=== PATIENT | male | born 1965 ===

== ENCOUNTER 2017-07-26 02:41 | Inpatient (IN) | payer MEDICAID, OTHER ==
[2017-07-26 02:41] VITALS: BMI 30.7
[2017-07-26] MEDS ORDERED: Morphine 4 MG/ML VIAL ONE (02:52)
[2017-07-26] MEDS ORDERED: Iodixanol 320 MG/ML 200 ML BOTTLE IV ONE (02:58)
[2017-07-26] MEDS ORDERED: Nitroglycerin 50mg in D5W 50 MG/250 ML BOTTLE IV ONE (02:58)
[2017-07-26] MEDS ORDERED: Midazolam 2 MG/2 ML VIAL ONE (03:01)
--- NOTE | 2017-07-26 03:01 | C.PDOC ---
History Of Present Illness Patient presents as a code heart transfer, he was seen in the ER by Dr. Leger and sent up to the center medical and lab director immediately. Chief Complaint (Nursing): Chest Pain Past Medical History Reviewed: Historical Data, Nursing Documentation, Vital Signs Vital Signs: Last Vital Signs Temp 97.6 F 07/26/17 03:54 Pulse 74 07/26/17 03:54 Resp 16 07/26/17 03:54 BP 128/72 07/26/17 03:54 Pulse Ox - Medical History PMH: Arthritis, Hypothyroidism Family History: States: Unknown Family Hx - Social History Hx Alcohol Use: No Hx Substance Use: No Disposition Discussed With : Gonzales Leger Doctor Will See Patient In The: Hospital Counseled Patient/Family Regarding: Diagnosis - Disposition Disposition: HOSPITALIZED Disposition Time: 03:40 Condition: STABLE - POA Present On Arrival: None - Clinical Impression Clinical Impression: Acute MA - Scribe Statement The provider has reviewed the documentation as recorded by the Scribe Randall Topete All medical record entries made by the Scribanthony were at my direction and personally dictated by me. I have reviewed the chart and agree that the record accurately reflects my personal performance of the history, physical exam, medical decision making, and the department course for this patient. I have also personally directed, reviewed, and agree with the discharge instructions and disposition.
[2017-07-26] MEDS ORDERED: Sodium Chloride 0.9% 1,000 ML IV SCH (04:30)
--- NOTE | 2017-07-26 05:23 | CP.PCM.HP ---
Addendum entered and electronically signed by Rogerio Rodriguez DO 07/26/17 07: 07: 1. Pt also given MRSA screen Original Note: <Rogerio Rodrigeuz - Last Filed: 07/26/17 06:54> History of Present Illness - History of Present Illness History of Present Illness: This is a 52 yo male with past medical hx of hypothyroidism who presents for evaluation of chest pain. He initially presented to [facility] with chief complaint of chest pain. A code heart was called and pt was transferred to [facility]. Code heart team was assembled and Dr. Gonzales Leger performed cardiac cath. Pt is s/p coronary angioplasty with stent. 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 The chest pain was rated 9/10, radiated to the left arm, was described as a "burden" on his chest. The pain came and went but became progressively longer in duration. It was initially associated with shivering and a feeling that something was wrong, then progressed with the chest pain to SOB, dizziness, and a pressure in his head. Patient reports that this is the first time that he has experienced this. Patient denies fevers, chills, abdominal pain, nausea, vomiting, and diarrhea. When patient arrived at his home around 2:00am, he found his son and told him that he needed to go to a hospital. The patient then laid on the ground , states he did not fall. Patient's son then brought him to [facility], code heart was called, and he was transferred to [facility] ED. Patient was brought to labor mediator upon arrival. Access was obtained through the right femoral artery. 1 stent was placed in the first diagonal branch, all other vessels were found to have only minor disease. PMD: Jennifer Ibarra? ( last saw a few months ago, but saw another doctor covering for Dr. Ibarra very recently) Specialists: none Insurance: [employer] [facility] community plan medicaid Code status: full code PMH: hypothyroidism PSH: hernia repair 15 yrs ago, operation on hemorrhoids Allergies: NKDA Medications: levothyroxine daily Social hx: denies smoking, drinking, drug use. 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 Normally able to perform all ADLs without assistance. Present on Admission - Present on Admission Any Indicators Present on Admission: No History of DVT/PE: No History of Uncontrolled Diabetes: No Urinary Catheter: No Decubitus Ulcer Present: No Review of Systems - Constitutional Constitutional: absent: Chills, Fever - EENT Eyes: absent: Blurred Vision, Change in Vision Nose/Mouth/Throat: absent: Sore Throat, Neck Pain - Cardiovascular Cardiovascular: Chest Pain, Chest Pain at Rest, Diaphoresis, Dyspnea, Pain Radiating to Arm/Neck/Jaw - Respiratory Respiratory: Dyspnea. absent: Cough, Hemoptysis - Gastrointestinal Gastrointestinal: absent: Abdominal Pain, Nausea, Vomiting - Genitourinary Genitourinary: absent: Change in Urinary Stream, Difficulty Urinating - Musculoskeletal Musculoskeletal: absent: Arthralgias, Back Pain - Integumentary Integumentary: absent: Bleeding Lesions, Changing Lesions - Neurological Neurological: absent: Focal Weakness, Syncope - Psychiatric Psychiatric: absent: Hallucinations, Visual Hallucinations - Hematologic/Lymphatic Hematologic: absent: Easy Bleeding, Easy Bruising Past Patient History - Infectious Disease Hx of Infectious Diseases: None - Tetanus Immunizations Tetanus Immunization: Unknown - Past Medical History & Family History Past Medical History?: Yes Past Family History: Reviewed and not pertinent - Past Social History Smoking Status: Never Smoked Chewing Tobacco Use: No Cigar Use: No Alcohol: None Drugs: Denies Home Situation {Lives}: With Family Domestic Violence: Negative - CARDIAC Hx Cardiac Disorders: No - PULMONARY Hx Respiratory Disorders: No - NEUROLOGICAL Hx Neurological Disorder: No - HEENT Hx HEENT Problems: No - RENAL Hx Chronic Kidney Disease: No - ENDOCRINE/METABOLIC Hx Hypothyroidism: Yes - HEMATOLOGICAL/ONCOLOGICAL Hx Blood Disorders: No - INTEGUMENTARY Hx Dermatological Problems: No - MUSCULOSKELETAL/RHEUMATOLOGICAL Hx Falls: No - GASTROINTESTINAL Hx Gastrointestinal Disorders: No Hx Hemorrhoids: Yes - GENITOURINARY/GYNECOLOGICAL Hx Genitourinary Disorders: No - PSYCHIATRIC Hx Substance Use: No - SURGICAL HISTORY Hx Surgeries: Yes Hx Herniorrhaphy: Yes Other/Comment: HEMORRHOIDECTOMY - ANESTHESIA Hx Anesthesia: Yes Hx Anesthesia Reactions: No Hx Malignant Hyperthermia: No Has any member of the family had a problem w/ anesthesia?: No Meds Allergies/Adverse Reactions: Allergies Allergy/AdvReac Type Severity Reaction Status Date / Time No Known Allergies Allergy Verified 02/25/15 08:23 Physical Exam - Constitutional Appears: Non-toxic, No Acute Distress - Head Exam Head Exam: ATRAUMATIC, NORMAL INSPECTION, NORMOCEPHALIC - Eye Exam Eye Exam: EOMI - ENT Exam ENT Exam: Mucous Membranes Moist - Neck Exam Neck exam: Positive for: Full Rom, Normal Inspection - Respiratory Exam Respiratory Exam: Clear to Auscultation Bilateral, NORMAL BREATHING PATTERN. absent: Respiratory Distress - Cardiovascular Exam Cardiovascular Exam: REGULAR RHYTHM, +S1, +S2 - GI/Abdominal Exam GI & Abdominal Exam: Normal Bowel Sounds, Soft. absent: Tenderness - Exam Exam: NORMAL INSPECTION Additional comments: dressing clean and dry without signs of hematoma - Extremities Exam Extremities exam: Positive for: full ROM, normal inspection - Neurological Exam Neurological exam: Alert, CN II-XII Intact, Oriented x3 - Psychiatric Exam Psychiatric exam: Normal Affect, Normal Mood - Skin Skin Exam: Dry, Intact, Normal Color, Warm Results - Vital Signs Recent Vital Signs: Last Vital Signs Temp 97.6 F 07/26/17 03:54 Pulse 74 07/26/17 03:54 Resp 16 07/26/17 03:54 BP 128/72 07/26/17 03:54 Pulse Ox - Labs Result Diagrams: 07/26/17 06:28 Labs: Laboratory Results - last 24 hr 07/26/17 02:48 POC Glucose (mg/dL) 112 H Assessment & Plan - Assessment and Plan (Free Text) Assessment: This is a 52 yo male with past medical hx of hypothyroidism presenting with chest pain and S/P code heart and coronary angioplasty with stent 1. Code heart -s/p angioplasty with stent -Dr. Leger performed the procedure -NS 50 cc/hr -monitor groin site for any hematomas -management per ICU team including Dr. Ramos. -pt is hemodynamically stable -morning troponin ordered -morning ekg ordered -asa 81 mg po daily 2. hx of hypothyroidism -check TSH and free T4 -confirm dose -continue home synthroid -levothyroxine 175 mcg daily 3. GI/DVT ppx protonix 40 mg iv daily defer to ICU for DVT ppx Heart healthy diet Full code <Thai De La Torre - Last Filed: 07/26/17 19:30> Results - Vital Signs Recent Vital Signs: Last Vital Signs Temp 97.7 F 07/26/17 12:00 Pulse 69 07/26/17 12:16 Resp 17 07/26/17 12:16 BP 96/58 L 07/26/17 12:16 Pulse Ox 98 07/26/17 12:16 - Labs Result Diagrams: 07/26/17 06:28 07/26/17 06:28 Labs: Laboratory Results - last 24 hr 07/26/17 07/26/17 07/26/17 02:48 06:28 06:28 WBC 10.0 RBC 5.27 Hgb 14.5 Hct 41.5 MCV 78.7 L MCH 27.6 MCHC 35.0 RDW 13.9 Plt Count 288 MPV 8.3 Neut % (Auto) 66.5 Lymph % (Auto) 26.4 [place] % (Auto) 6.2 Eos % (Auto) 0.6 Baso % (Auto) 0.3 Neut # (Auto) 6.6 Lymph # (Auto) 2.6 [place] # (Auto) 0.6 Eos # (Auto) 0.1 Baso # (Auto) 0.0 Sodium 139 Potassium 4.0 Chloride 104 Carbon Dioxide 23 Anion Gap 16 BUN 13 Creatinine 1.0 Est GFR ( Amer) > 60 Est GFR (Non-Af Amer) > 60 POC Glucose (mg/dL) 112 H Random Glucose 94 Hemoglobin A1c Calcium 8.6 Phosphorus 3.3 Magnesium 2.0 Total Bilirubin 0.6 AST 26 ALT 21 D Alkaline Phosphatase 52 Total Creatine Kinase 172 H CK-MB (Mass) 7.24 H Troponin I 1.8600 H* Total Protein 7.0 Albumin 3.8 Globulin 3.2 Albumin/Globulin Ratio 1.2 Triglycerides Cholesterol LDL Cholesterol Direct HDL Cholesterol 07/26/17 07/26/17 08:32 08:32 WBC RBC Hgb Hct MCV MCH MCHC RDW Plt Count MPV Neut % (Auto) Lymph % (Auto) [place] % (Auto) Eos % (Auto) Baso % (Auto) Neut # (Auto) Lymph # (Auto) [place] # (Auto) Eos # (Auto) Baso # (Auto) Sodium Potassium Chloride Carbon Dioxide Anion Gap BUN Creatinine Est GFR ( Amer) Est GFR (Non-Af Amer) POC Glucose (mg/dL) Random Glucose Hemoglobin A1c 6.0 Calcium Phosphorus Magnesium Total Bilirubin AST ALT Alkaline Phosphatase Total Creatine Kinase CK-MB (Mass) Troponin I Total Protein Albumin Globulin Albumin/Globulin Ratio Triglycerides 301 H Cholesterol 214 H LDL Cholesterol Direct 131 H HDL Cholesterol 25 L Assessment & Plan - Date & Time Date: 07/26/17 (I have seen and examined the patient. I agree with the findings and plan of care as documented by Dr. Rodriguez. Patient with myocardial infarction. Code heart called in ED. Dr Leger consulted for interventional cardio. Angioplasty with stent. Admit to ICU. Further management as per ICU. Monitor for acute changes.) Time: 19:29 Attending/Attestation - Attestation I have personally seen and examined this patient.: Yes I have fully participated in the care of the patient.: Yes I have reviewed all pertinent clinical information: Yes
[2017-07-26] MEDS ORDERED: Levothyroxine 175 MCG TAB PO SCH ×2 (06:30→10:45)
[2017-07-26 06:46] LABS: BASO % 0.3 % (0.0-2.0); EOS # 0.1 K/uL (0.0-0.7); EOS % 0.6 % (0.0-4.0); HEMOGLOBIN 14.5 g/dL (12.0-18.0); LYMPH # 2.6 K/uL (1.0-4.3); LYMPH % 26.4 % (20.0-40.0); MEAN CELL VOLUME 78.7 fL (80.0-94.0); MEAN CORPUSCULAR HEMOGLOBIN 27.6 pg (27.0-31.0); MEAN PLATELET VOLUME 8.3 fL (7.2-11.7); MONO # 0.6 K/uL (0.0-0.8); MONO % 6.2 % (0.0-10.0); NEUT # 6.6 K/uL (1.8-7.0); NEUT % 66.5 % (50.0-75.0); NRBC % 0.1 % (0.0-2.0); RBC 5.27 Mil/uL (4.40-5.90); RED CELL DISTRIBUTION WIDTH 13.9 % (11.5-14.5)
[2017-07-26 06:47] LABS: ALB/GLOB RATIO 1.2 (1.0-2.1); ALBUMIN 3.8 g/dL (3.5-5.0); ALT/SGPT 21 U/L (21-72); AST/SGOT 26 U/L (17-59); BLOOD UREA NITROGEN 13 mg/dL (9-20); CALCIUM 8.6 mg/dl (8.6-10.4); GFR AFRICAN-AMERICAN > 60; GFR NON-AFRICAN AMERICAN > 60
[2017-07-26 07:10] LABS: CK-MB 7.24 ng/mL (0.0-3.38)
--- NOTE | 2017-07-26 07:46 | CP.PCM.CON ---
<Nakul Ying - Last Filed: 07/26/17 11:22> History of Present Illness - History of Present Illness History of Present Illness: Nakul Ying PGY1 Cardiology Consult for Dr. Leger Mr. Astorga is 52 yo male with a PMH of hypothyroidism who presented with chest pain to [facility], CODE HEART was activated and patient was transferred to [facility]. EKG was concerning for acute anteroseptal STEMI. Patient underwent left heart cath with stenting of first diagonal branch. Patient seen in ICU and reports relief of pain. He states that his PMD Linda Rizwan had him on statin medication before for 5months but was taken off. He was never diagnosed with diabetes or hyperlipidemia. Patient endorses that his BP is usually on the lower side, SBP usually 90-100 but denies hx of syncope or near syncope. He denies having other prior episodes. He currently denies chest pain, shortness of breath, leg pain, numbness/tingling, fevers/ chills. 12-pt ROS was reviewed and is otherwise unremarkable. PMD: Dr. Linda Astorga PMH: hypothyroidism PSH: right hernia repair ALL: NKDA Medications: Synthroid SHx: denies smoking, ETOH use or drug use FHx: paternal uncle w/ [place] Review of Systems - Review of Systems All systems: reviewed and no additional remarkable complaints except (as per HPI ) Past Patient History - Infectious Disease Hx of Infectious Diseases: None - Tetanus Immunizations Tetanus Immunization: Unknown - Past Medical History & Family History Past Medical History?: Yes Past Family History: Reviewed and not pertinent - Past Social History Smoking Status: Never Smoked Chewing Tobacco Use: No Cigar Use: No Alcohol: None Drugs: Denies Home Situation {Lives}: With Family Domestic Violence: Negative - CARDIAC Hx Cardiac Disorders: No - PULMONARY Hx Respiratory Disorders: No - NEUROLOGICAL Hx Neurological Disorder: No - HEENT Hx HEENT Problems: No - RENAL Hx Chronic Kidney Disease: No - ENDOCRINE/METABOLIC Hx Hypothyroidism: Yes - HEMATOLOGICAL/ONCOLOGICAL Hx Blood Disorders: No - INTEGUMENTARY Hx Dermatological Problems: No - MUSCULOSKELETAL/RHEUMATOLOGICAL Hx Falls: No - GASTROINTESTINAL Hx Gastrointestinal Disorders: No Hx Hemorrhoids: Yes - GENITOURINARY/GYNECOLOGICAL Hx Genitourinary Disorders: No - PSYCHIATRIC Hx Substance Use: No - SURGICAL HISTORY Hx Surgeries: Yes Hx Herniorrhaphy: Yes Other/Comment: HEMORRHOIDECTOMY - ANESTHESIA Hx Anesthesia: Yes Hx Anesthesia Reactions: No Hx Malignant Hyperthermia: No Has any member of the family had a problem w/ anesthesia?: No Meds Allergies/Adverse Reactions: Allergies Allergy/AdvReac Type Severity Reaction Status Date / Time No Known Allergies Allergy Verified 02/25/15 08:23 - Medications Medications: Current Medications Sodium Chloride (Sodium Chloride 0.9%) 1,000 mls @ 50 mls/hr IV .Q20H [facility] Last Admin: 07/26/17 04:41 Dose: 50 mls/hr Pantoprazole Sodium (Protonix Inj) 40 mg IVP DAILY [facility] Pneumococcal Polyvalent Vaccine (Pneumovax 23 Vaccine) 0.5 ml SC .ONCE ONE Stop: 07/28/17 10:01 Physical Exam - Constitutional Appears: Well, Non-toxic, No Acute Distress - Head Exam Head Exam: NORMAL INSPECTION - Eye Exam Eye Exam: Normal appearance - ENT Exam ENT Exam: Mucous Membranes Moist - Neck Exam Neck exam: Positive for: Normal Inspection - Respiratory Exam Respiratory Exam: Clear to Auscultation Bilateral, NORMAL BREATHING PATTERN. absent: Rales, Rhonchi, Wheezes - Cardiovascular Exam Cardiovascular Exam: RRR, +S1, +S2. absent: JVD, Systolic Murmur - GI/Abdominal Exam GI & Abdominal Exam: Normal Bowel Sounds, Soft. absent: Distended, Tenderness - Extremities Exam Extremities exam: Positive for: normal inspection. Negative for: pedal edema Additional comments: right groin dressing c/d/i no hematomas noted - Back Exam Back exam: NORMAL INSPECTION. absent: tenderness - Neurological Exam Neurological exam: Alert, Oriented x3 - Psychiatric Exam Psychiatric exam: Normal Mood - Skin Skin Exam: Normal Color Results - Vital Signs Recent Vital Signs: Last Vital Signs Temp 97.6 F 07/26/17 06:09 Pulse 63 07/26/17 07:30 Resp 19 07/26/17 07:30 BP 93/58 L 07/26/17 07:19 Pulse Ox 98 07/26/17 07:30 - Labs Result Diagrams: 07/26/17 06:28 07/26/17 06:28 Labs: Laboratory Results - last 24 hr 07/26/17 07/26/17 07/26/17 02:48 06:28 06:28 WBC 10.0 RBC 5.27 Hgb 14.5 Hct 41.5 MCV 78.7 L MCH 27.6 MCHC 35.0 RDW 13.9 Plt Count 288 MPV 8.3 Neut % (Auto) 66.5 Lymph % (Auto) 26.4 [place] % (Auto) 6.2 Eos % (Auto) 0.6 Baso % (Auto) 0.3 Neut # (Auto) 6.6 Lymph # (Auto) 2.6 [place] # (Auto) 0.6 Eos # (Auto) 0.1 Baso # (Auto) 0.0 Sodium 139 Potassium 4.0 Chloride 104 Carbon Dioxide 23 Anion Gap 16 BUN 13 Creatinine 1.0 Est GFR ( Amer) > 60 Est GFR (Non-Af Amer) > 60 POC Glucose (mg/dL) 112 H Random Glucose 94 Calcium 8.6 Phosphorus 3.3 Magnesium 2.0 Total Bilirubin 0.6 AST 26 ALT 21 D Alkaline Phosphatase 52 Total Creatine Kinase 172 H CK-MB (Mass) 7.24 H Troponin I 1.8600 H* Total Protein 7.0 Albumin 3.8 Globulin 3.2 Albumin/Globulin Ratio 1.2 Assessment & Plan - Assessment and Plan (Free Text) Assessment: 52 yo male with a PMH of hypothyroidism who presented with chest pain found to have acute STEMI of anteroseptal distribution. CODE HEART activated and patient underwent LHC with stenting of first diagonal branch. Plan: 1. STEMI - start ASA and Brilinta for DAPT - start BB, ACEi, and high intensity statin - Lipid panel shows hyperlipidemia and elevated TG/HDL ratio indicating high risk of CAD - A1C 6, continue strict gylcemic control - should follow low salt and low carb diet - monitor for hypotensive episodes - echo ordered to assess LVEF 2. Hx hypothyroidism - cont synthroid Patient was reviewed and discussed with Dr. Leger <Gonzales Leger - Last Filed: 07/26/17 18:18> Meds - Medications Medications: Current Medications Aspirin (Ecotrin) 81 mg PO DAILY [facility] Last Admin: 07/26/17 11:35 Dose: 81 mg Famotidine (Pepcid) 20 mg PO BID [facility] Levothyroxine Sodium (Synthroid) 175 mcg PO 0630 [facility] Last Admin: 07/26/17 12:54 Dose: 175 mcg Lisinopril (Zestril) 5 mg PO DAILY [facility] Metoprolol Tartrate (Lopressor) 25 mg PO BID [facility] Last Admin: 07/26/17 11:47 Dose: 25 mg Rosuvastatin Calcium (Crestor) 20 mg PO HS [facility] Ticagrelor (Brilinta) 90 mg PO BID [facility] Last Admin: 07/26/17 11:35 Dose: 90 mg Results - Vital Signs Recent Vital Signs: Last Vital Signs Temp 97.7 F 07/26/17 12:00 Pulse 69 07/26/17 12:16 Resp 17 07/26/17 12:16 BP 96/58 L 07/26/17 12:16 Pulse Ox 98 07/26/17 12:16 - Labs Result Diagrams: 07/26/17 06:28 07/26/17 06:28 Labs: Laboratory Results - last 24 hr 07/26/17 07/26/17 07/26/17 02:48 06:28 06:28 WBC 10.0 RBC 5.27 Hgb 14.5 Hct 41.5 MCV 78.7 L MCH 27.6 MCHC 35.0 RDW 13.9 Plt Count 288 MPV 8.3 Neut % (Auto) 66.5 Lymph % (Auto) 26.4 [place] % (Auto) 6.2 Eos % (Auto) 0.6 Baso % (Auto) 0.3 Neut # (Auto) 6.6 Lymph # (Auto) 2.6 [place] # (Auto) 0.6 Eos # (Auto) 0.1 Baso # (Auto) 0.0 Sodium 139 Potassium 4.0 Chloride 104 Carbon Dioxide 23 Anion Gap 16 BUN 13 Creatinine 1.0 Est GFR ( Amer) > 60 Est GFR (Non-Af Amer) > 60 POC Glucose (mg/dL) 112 H Random Glucose 94 Hemoglobin A1c Calcium 8.6 Phosphorus 3.3 Magnesium 2.0 Total Bilirubin 0.6 AST 26 ALT 21 D Alkaline Phosphatase 52 Total Creatine Kinase 172 H CK-MB (Mass) 7.24 H Troponin I 1.8600 H* Total Protein 7.0 Albumin 3.8 Globulin 3.2 Albumin/Globulin Ratio 1.2 Triglycerides Cholesterol LDL Cholesterol Direct HDL Cholesterol 07/26/17 07/26/17 08:32 08:32 WBC RBC Hgb Hct MCV MCH MCHC RDW Plt Count MPV Neut % (Auto) Lymph % (Auto) [place] % (Auto) Eos % (Auto) Baso % (Auto) Neut # (Auto) Lymph # (Auto) [place] # (Auto) Eos # (Auto) Baso # (Auto) Sodium Potassium Chloride Carbon Dioxide Anion Gap BUN Creatinine Est GFR ( Amer) Est GFR (Non-Af Amer) POC Glucose (mg/dL) Random Glucose Hemoglobin A1c 6.0 Calcium Phosphorus Magnesium Total Bilirubin AST ALT Alkaline Phosphatase Total Creatine Kinase CK-MB (Mass) Troponin I Total Protein Albumin Globulin Albumin/Globulin Ratio Triglycerides 301 H Cholesterol 214 H LDL Cholesterol Direct 131 H HDL Cholesterol 25 L Attending/Attestation - Attestation I have personally seen and examined this patient.: Yes I have fully participated in the care of the patient.: Yes I have reviewed all pertinent clinical information: Yes Notes (Text): 07/26/17 18:18 s/p STEMI with PCI of Diagonal DAPT x 1 year GDMT for CAD stable to dc post echo
[2017-07-26 08:51] LABS: HDL CHOLESTEROL 25 mg/dL (30-70)
[2017-07-26 09:01] LABS: LDL CHOLESTEROL 131 mg/dL (0-129)
--- NOTE | 2017-07-26 11:12 | CARDCATH ---
PROCEDURE DATE: 07/26/2017 INDICATIONS: ST elevation AL. HISTORY: Mr. David Astorga is a 52-year-old male with history of hypothyroidism, presented to [facility] with left-sided substernal chest pain, pressure-like, radiating to the neck and left arm. EKG done showed ST elevations from V2 to V4. STEMI was activated. The patient was emergently transferred over to [facility] and taken to the laborer electroplating. Repeat EKG prior to the laborer electroplating arrival showed resolution of the ST elevation, but the patient continued to have persistent chest pain. Therefore, he was emergently taken for further characterization of his coronary anatomy. PROCEDURES PERFORMED: Emergent left heart catheterization with selective left and right coronary angiogram, left ventriculogram, PTCA stenting of proximal diagonal branch with deployment of 2.25 x 24 mm Xience drug-eluting stent, regeneration from 99% down to 0%, JOVANI-2 to JOVANI-3 flow. Provisional ballooning of superior branch of the diagonal prior to stenting, 6-Hungarian right femoral arterial access. Mynx closure device for hemostasis. TECHNIQUES OF PROCEDURE: After obtaining informed consent, the patient was brought emergently to the laborer electroplating for evaluation and treatment of ST elevation AL. After obtaining informed consent, using modified Seldinger technique, a 6-Hungarian sheath was obtained into the right femoral artery. Subsequently, a JL-4 guiding catheter was used to engage the left coronary system. Angiograms were obtained in different orthogonal views. CORONARY ANATOMY: Left coronary artery: The left main, large-sized vessel, bifurcates into left anterior descending and left circumflex coronary artery. Left circumflex is a large-sized vessel. It gives off a medium-sized obtuse marginal branch. Left anterior descending is a large-sized vessel. It gives off a medium-sized diagonal branch which had a proximal 99% ruptured plaque with JOVANI-2 flow. It was a bifurcating branch into superior and inferior branches of the diagonal the lesion and was noted immediately for which a Whisper wire was used to negotiate into the inferior branch of the diagonal, has 99% subtotal occlusion. Subsequently, the lesion was predilated with a 2-0 balloon. BMW wire was then negotiated into the superior branch of the diagonal. It was predilated with a 2.0 balloon. Subsequently, the diagonal was stented from the main body into the superior branch with a 2.25 x 24 mm Xience drug-eluting stent with regeneration down to 0% JOVANI-3 flow. Subsequent angiograms then showed good JOVANI-3 flow. CORONARY ANATOMY: Mid LAD past the diagonal had a 55% stenosis, nonobstructive JOVANI-3 flow. Subsequently, a right coronary angiogram was obtained which showed nonobstructive disease, co-dominant circulation. Left ventricular ejection fraction was performed using LV gram in the CORRIGAN view. Ejection fraction was estimated to be 50% to 55%. Left ventricular diastolic pressure was elevated at 33 mmHg. IMPRESSION: Acute thrombotic occlusion of diagonal branch. Successful stenting with a 2.25 x 24 Xience drug-eluting stent. Provisional ballooning of the superior branch of the diagonal with good degeneration, down to 0% JOVANI-3 flow. Elevated end-diastolic pressure secondary to acute myocardial infarction. RECOMMENDATIONS: The patient is to be maintained on dual antiplatelet therapy for one year. Guideline-directed therapy for CAD. Diuretic therapy for elevated EDP secondary to ischemic cardiomyopathy. Echocardiogram. ICU monitoring. Gonzales Leger MD SENG
--- NOTE | 2017-07-26 16:00 | CP.PCM.DIS ---
Provider - Provider Date of Admission: 07/26/17 02:49 Attending physician: Thai De La Torre MD Time Spent in preparation of Discharge (in minutes): 45 Diagnosis - Discharge Diagnosis (1) Acute SD Status: Acute (2) STEMI (ST elevation myocardial infarction) Status: Acute Hospital Course - Lab Results Lab Results: Most Recent Lab Values WBC 10.0 K/uL (4.8-10.8) 07/26/17 06:28 RBC 5.27 Mil/uL (4.40-5.90) 07/26/17 06:28 Hgb 14.5 g/dL (12.0-18.0) 07/26/17 06:28 Hct 41.5 % (35.0-51.0) 07/26/17 06:28 MCV 78.7 fL (80.0-94.0) L 07/26/17 06:28 MCH 27.6 pg (27.0-31.0) 07/26/17 06: MCHC 35.0 g/dL (33.0-37.0) 07/26/17 06:28 RDW 13.9 % (11.5-14.5) 07/26/17 06:28 Plt Count 288 K/uL (130-400) 07/26/17 06:28 MPV 8.3 fL (7.2-11.7) 07/26/17 06:28 Neut % (Auto) 66.5 % (50.0-75.0) 07/26/17 06: Lymph % (Auto) 26.4 % (20.0-40.0) 07/26/17 06:28 [place] % (Auto) 6.2 % (0.0-10.0) 07/26/17 06:28 Eos % (Auto) 0.6 % (0.0-4.0) 07/26/17 06:28 Baso % (Auto) 0.3 % (0.0-2.0) 07/26/17 06:28 Neut # (Auto) 6.6 K/uL (1.8-7.0) 07/26/17 06:28 Lymph # (Auto) 2.6 K/uL (1.0-4.3) 07/26/17 06:28 [place] # (Auto) 0.6 K/uL (0.0-0.8) 07/26/17 06:28 Eos # (Auto) 0.1 K/uL (0.0-0.7) 07/26/17 06:28 Baso # (Auto) 0.0 K/uL (0.0-0.2) 07/26/17 06:28 Sodium 139 mmol/L (132-148) 07/26/17 06:28 Potassium 4.0 mmol/L (3.6-5.2) 07/26/17 06:28 Chloride 104 mmol/L (98-107) 07/26/17 06:28 Carbon Dioxide 23 mmol/L (22-30) 07/26/17 06:28 Anion Gap 16 (10-20) 07/26/17:28 BUN 13 mg/dL (9-20) 07/26/17 06:28 Creatinine 1.0 mg/dL (0.8-1.5) 07/26/17 06:28 Est GFR ( Amer) > 60 07/26/17 06: Est GFR (Non-Af Amer) > 60 07/26/17 06:28 POC Glucose (mg/dL) 112 mg/dL (65-110) H 07/26/17 02:48 Random Glucose 94 mg/dL (75-110) 07/26/17 06:28 Hemoglobin A1c 6.0 % (4.2-6.5) 07/26/17 08:32 Calcium 8.6 mg/dl (8.6-10.4) 07/26/17 06:28 Phosphorus 3.3 mg/dL (2.5-4.5) 07/26/17 06:28 Magnesium 2.0 mg/dL (1.6-2.3) 07/26/17 06:28 Total Bilirubin 0.6 mg/dL (0.2-1.3) 07/26/17 06:28 AST 26 U/L (17-59) 07/26/17 06:28 ALT 21 U/L (21-72) D 07/26/17 06:28 Alkaline Phosphatase 52 U/L (38-126) 07/26/17 06:28 Total Creatine Kinase 172 U/L (55-170) H 07/26/17 06:28 CK-MB (Mass) 7.24 ng/mL (0.0-3.38) H 07/26/17 06:28 Troponin I 1.8600 ng/mL (0.00-0.120) H* 07/26/17 06:28 Total Protein 7.0 g/dL (6.3-8.3) 07/26/17 06:28 Albumin 3.8 g/dL (3.5-5.0) 07/26/17 06:28 Globulin 3.2 gm/dL (2.2-3.9) 07/26/17 06:28 Albumin/Globulin Ratio 1.2 (1.0-2.1) 07/26/17 06:28 Triglycerides 301 mg/dL (0-149) H 07/26/17 08:32 Cholesterol 214 mg/dL (0-199) H 07/26/17 08:32 LDL Cholesterol Direct 131 mg/dL (0-129) H 07/26/17 08:32 HDL Cholesterol 25 mg/dL (30-70) L 07/26/17 08:32 - Hospital Course Hospital Course: This is a 52 yo male with past medical hx of hypothyroidism who presents for evaluation of chest pain. He initially presented to [facility] with chief complaint of chest pain. A code heart was called and pt was transferred to [facility]. Code heart team was assembled and Dr. Gonzales Leger performed cardiac cath. Pt is s/p coronary angioplasty with stent. 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 The chest pain was rated 9/10, radiated to the left arm, was described as a "burden" on his chest. The pain came and went but became progressively longer in duration. It was initially associated with shivering and a feeling that something was wrong, then progressed with the chest pain to SOB, dizziness, and a pressure in his head. Patient reports that this is the first time that he has experienced this. Patient denies fevers, chills, abdominal pain, nausea, vomiting, and diarrhea. When patient arrived at his home around 2:00am, he found his son and told him that he needed to go to a hospital. The patient then laid on the ground , states he did not fall. Patient's son then brought him to [place] ED, code heart was called, and he was transferred to [facility] ED. Patient was brought to animal laboratory helper upon arrival. Access was obtained through the right femoral artery. 1 stent was placed in the first diagonal branch, all other vessels were found to have only minor disease. Patient was seen and examined at ICU. Patient is doing well. Patient was seen by DR Leger . Recommend to discharge home on Brilinta,asprin,statin,lisinopril and metoprolol.Patient will follow Dr Leger as an out patient in 1 to 2 weeks. Echo will be followed by DR Leger. - Date & Time of H&P Date of H&P: 07/26/17 Time of H&P: 16:06 Discharge Exam - Head Exam Head Exam: NORMAL INSPECTION - Eye Exam Eye Exam: Normal appearance - ENT Exam ENT Exam: Mucous Membranes Moist - Respiratory Exam Respiratory Exam: NORMAL BREATHING PATTERN - Cardiovascular Exam Cardiovascular Exam: REGULAR RHYTHM - GI/Abdominal Exam GI & Abdominal Exam: Normal Bowel Sounds, Soft, Unremarkable - Extremities Exam Extremities exam: full ROM - Back Exam Back exam: NORMAL INSPECTION - Psychiatric Exam Psychiatric exam: Normal Mood - Skin Skin Exam: Dry, Intact Discharge Plan - Discharge Medications Prescriptions: Aspirin [Ecotrin] 81 mg PO DAILY #30 tabec Lisinopril [Zestril] 5 mg PO DAILY #30 tab Metoprolol Tartrate [Lopressor] 25 mg PO BID #60 tab Rosuvastatin Calcium [Crestor] 20 mg PO HS #30 tab Ticagrelor [Brilinta] 90 mg PO BID #60 tab - Follow Up Plan Condition: STABLE Disposition: HOME/ ROUTINE Patient education suggested?: Yes Referrals: Reyes Astorga MD [Medical Doctor] - 1 Week Clinical Quality Measures - CQM - Stroke Anticoagulation Prescribed for Atrial Flutter, Atrial Fibrillation and History of:: Not Applicable - Date & Time of Discharge Summary Date of Discharge Summary: 07/26/17 Time of Discharge Summary: 16:10
[2017-07-26] MEDS ORDERED: Pneumococcal 23-Valent Vaccine SC ONE (16:48)
--- NOTE | 2017-07-26 19:03 | CP.CCUPN ---
CCU Subjective - Physician Review Events Since Last Encounter (Free Text): 07/26/17 19:02 The Patient was seen and examined at the bedside, Medical records reviewed, and management issues were discussed and formulated with the house staff. Events reviewed Pt AAO x3. Alert, follows commands Denies any chest pain, SOB or Palpitations Afebrile, NSR on the monitor CCU Objective - Vital Signs / Intake & Output Intake and Output (Last 8hrs): Intake & Output 07/26/17 07/26/17 07/26/17 06:59 14:59 22:59 Intake Total 200 1240 Output Total 650 1000 Balance -450 240 Weight 210 lb Intake: Intake, IV Amount 150 350 Left Hand 50 left hand 150 300 Oral 50 890 Output: Urine 650 1000 Urine, Voided 650 1000 Stool 0 Other: Voiding Method Urinal - Physical Exam Head: Positive for: Atraumatic, Normocephalic Pupils: Positive for: PERRL Extroacular Muscles: Positive for: EOMI Conjunctiva: Positive for: Normal Mouth: Positive for: Moist Mucous Membranes Neck: Positive for: Normal Range of Motion, Trachea Midline. Negative for: Meningeal Signs, MIDLINE TENDERNESS, Paraspinal Tenderness, JVD, Lymphadenopathy , Bruit, Other Respiratory/Chest: Positive for: Clear to Auscultation, Good Air Exchange. Negative for: Respiratory Distress, Accessory Muscle Use Cardiovascular: Positive for: Regular Rate and Rhythm, Normal S1, S2, Peripheal Pulses Present. Negative for: Murmurs, Irregular Rhythm, Tachycardic, Bradycardic Abdomen: Positive for: Normal Bowel Sounds. Negative for: Tenderness, Distention Upper Extremity: Positive for: Normal Inspection, Normal ROM, NORMAL PULSES, Capillary Refill < 2s. Negative for: Cyanosis, Edema Lower Extremity: Positive for: Normal Inspection, NORMAL PULSES, Capillary Refill < 2 s. Negative for: Edema, CALF TENDERNESS Neurological: Positive for: GCS=15, CN II-XII Intact, Speech Normal, Motor Func Grossly Intact, Normal Sensory Function - Medications Active Medications: Active Medications Generic Name Dose Route Start Last Admin Trade Name Freq PRN Reason Stop Dose Admin Aspirin 81 mg 07/26/17 10:00 07/26/17 11:35 Ecotrin PO 81 mg DAILY LUDWIN Administration Famotidine 20 mg 07/26/17 18:00 Pepcid PO BID LUDWIN Levothyroxine Sodium 175 mcg 05/24/18 10:45 07/26/17 12:54 Synthroid PO 175 mcg 0630 LUDWIN Administration Lisinopril 5 mg 07/26/17 10:00 Zestril PO DAILY LUDWIN Metoprolol Tartrate 25 mg 07/26/17 10:00 07/26/17 11:47 Lopressor PO 25 mg BID LUDWIN Administration Rosuvastatin Calcium 20 mg 07/26/17 22:00 Crestor PO HS LUDWIN Ticagrelor 90 mg 07/26/17 10:30 07/26/17 11:35 Brilinta PO 90 mg BID LUDWIN Administration - Patient Studies Lab Studies: Lab Studies 07/26/17 07/26/17 07/26/17 Range/Units 08:32 08:32 06:28 WBC (4.8-10.8) K/uL RBC (4.40-5.90) Mil/uL Hgb (12.0-18.0) g/dL Hct (35.0-51.0) % MCV (80.0-94.0) fL MCH (27.0-31.0) pg MCHC (33.0-37.0) g/dL RDW (11.5-14.5) % Plt Count (130-400) K/uL MPV (7.2-11.7) fL Neut % (Auto) (50.0-75.0) % Lymph % (Auto) (20.0-40.0) % [place] % (Auto) (0.0-10.0) % Eos % (Auto) (0.0-4.0) % Baso % (Auto) (0.0-2.0) % Neut # (Auto) (1.8-7.0) K/uL Lymph # (Auto) (1.0-4.3) K/uL [place] # (Auto) (0.0-0.8) K/uL Eos # (Auto) (0.0-0.7) K/uL Baso # (Auto) (0.0-0.2) K/uL Sodium 139 (132-148) mmol/L Potassium 4.0 (3.6-5.2) mmol/L Chloride 104 (98-107) mmol/L Carbon Dioxide 23 (22-30) mmol/L Anion Gap 16 (10-20) BUN 13 (9-20) mg/dL Creatinine 1.0 (0.8-1.5) mg/dL Est GFR ( Amer) > 60 Est GFR (Non-Af Amer) > 60 POC Glucose (mg/dL) (65-110) mg/dL Random Glucose 94 (75-110) mg/dL Hemoglobin A1c 6.0 (4.2-6.5) % Calcium 8.6 (8.6-10.4) mg/dl Phosphorus 3.3 (2.5-4.5) mg/dL Magnesium 2.0 (1.6-2.3) mg/dL Total Bilirubin 0.6 (0.2-1.3) mg/dL AST 26 (17-59) U/L ALT 21 D (21-72) U/L Alkaline Phosphatase 52 (38-126) U/L Total Creatine Kinase 172 H (55-170) U/L CK-MB (Mass) 7.24 H (0.0-3.38) ng/mL Troponin I 1.8600 H* (0.00-0.120) ng/mL Total Protein 7.0 (6.3-8.3) g/dL Albumin 3.8 (3.5-5.0) g/dL Globulin 3.2 (2.2-3.9) gm/dL Albumin/Globulin Ratio 1.2 (1.0-2.1) Triglycerides 301 H (0-149) mg/dL Cholesterol 214 H (0-199) mg/dL LDL Cholesterol Direct 131 H (0-129) mg/dL HDL Cholesterol 25 L (30-70) mg/dL 18 18 Range/Units 06:28 02:48 WBC 10.0 (4.8-10.8) K/uL RBC 5.27 (4.40-5.90) Mil/uL Hgb 14.5 (12.0-18.0) g/dL Hct 41.5 (35.0-51.0) % MCV 78.7 L (80.0-94.0) fL MCH 27.6 (27.0-31.0) pg MCHC 35.0 (33.0-37.0) g/dL RDW 13.9 (11.5-14.5) % Plt Count 288 (130-400) K/uL MPV 8.3 (7.2-11.7) fL Neut % (Auto) 66.5 (50.0-75.0) % Lymph % (Auto) 26.4 (20.0-40.0) % [place] % (Auto) 6.2 (0.0-10.0) % Eos % (Auto) 0.6 (0.0-4.0) % Baso % (Auto) 0.3 (0.0-2.0) % Neut # (Auto) 6.6 (1.8-7.0) K/uL Lymph # (Auto) 2.6 (1.0-4.3) K/uL [place] # (Auto) 0.6 (0.0-0.8) K/uL Eos # (Auto) 0.1 (0.0-0.7) K/uL Baso # (Auto) 0.0 (0.0-0.2) K/uL Sodium (132-148) mmol/L Potassium (3.6-5.2) mmol/L Chloride (98-107) mmol/L Carbon Dioxide (22-30) mmol/L Anion Gap (10-20) BUN (9-20) mg/dL Creatinine (0.8-1.5) mg/dL Est GFR ( Amer) Est GFR (Non-Af Amer) POC Glucose (mg/dL) 112 H (65-110) mg/dL Random Glucose (75-110) mg/dL Hemoglobin A1c (4.2-6.5) % Calcium (8.6-10.4) mg/dl Phosphorus (2.5-4.5) mg/dL Magnesium (1.6-2.3) mg/dL Total Bilirubin (0.2-1.3) mg/dL AST (17-59) U/L ALT (21-72) U/L Alkaline Phosphatase (38-126) U/L Total Creatine Kinase (55-170) U/L CK-MB (Mass) (0.0-3.38) ng/mL Troponin I (0.00-0.120) ng/mL Total Protein (6.3-8.3) g/dL Albumin (3.5-5.0) g/dL Globulin (2.2-3.9) gm/dL Albumin/Globulin Ratio (1.0-2.1) Triglycerides (0-149) mg/dL Cholesterol (0-199) mg/dL LDL Cholesterol Direct (0-129) mg/dL HDL Cholesterol (30-70) mg/dL Laboratory Results - last 24 hr 07/26/17 07/26/17 07/26/17 02:48 06:28 06:28 WBC 10.0 RBC 5.27 Hgb 14.5 Hct 41.5 MCV 78.7 L MCH 27.6 MCHC 35.0 RDW 13.9 Plt Count 288 MPV 8.3 Neut % (Auto) 66.5 Lymph % (Auto) 26.4 [place] % (Auto) 6.2 Eos % (Auto) 0.6 Baso % (Auto) 0.3 Neut # (Auto) 6.6 Lymph # (Auto) 2.6 [place] # (Auto) 0.6 Eos # (Auto) 0.1 Baso # (Auto) 0.0 Sodium 139 Potassium 4.0 Chloride 104 Carbon Dioxide 23 Anion Gap 16 BUN 13 Creatinine 1.0 Est GFR ( Amer) > 60 Est GFR (Non-Af Amer) > 60 POC Glucose (mg/dL) 112 H Random Glucose 94 Hemoglobin A1c Calcium 8.6 Phosphorus 3.3 Magnesium 2.0 Total Bilirubin 0.6 AST 26 ALT 21 D Alkaline Phosphatase 52 Total Creatine Kinase 172 H CK-MB (Mass) 7.24 H Troponin I 1.8600 H* Total Protein 7.0 Albumin 3.8 Globulin 3.2 Albumin/Globulin Ratio 1.2 Triglycerides Cholesterol LDL Cholesterol Direct HDL Cholesterol 07/26/17 07/26/17 08:32 08:32 WBC RBC Hgb Hct MCV MCH MCHC RDW Plt Count MPV Neut % (Auto) Lymph % (Auto) [place] % (Auto) Eos % (Auto) Baso % (Auto) Neut # (Auto) Lymph # (Auto) [place] # (Auto) Eos # (Auto) Baso # (Auto) Sodium Potassium Chloride Carbon Dioxide Anion Gap BUN Creatinine Est GFR ( Amer) Est GFR (Non-Af Amer) POC Glucose (mg/dL) Random Glucose Hemoglobin A1c 6.0 Calcium Phosphorus Magnesium Total Bilirubin AST ALT Alkaline Phosphatase Total Creatine Kinase CK-MB (Mass) Troponin I Total Protein Albumin Globulin Albumin/Globulin Ratio Triglycerides 301 H Cholesterol 214 H LDL Cholesterol Direct 131 H HDL Cholesterol 25 L EKG/Cardiology Studies: Cardiology / EKG Studies 07/26/17 02:51 EKG [ELECTROCARDIOGRAM] Stat Comment: Mode Of Transportation: BED Reason For Exam: cp 07/26/17 04:13 ELECTROCARDIOGRAM Stat Comment: Mode Of Transportation: PORTABLE Reason For Exam: post cath Review of Systems - Gastrointestinal Gastrointestinal: absent: As Per HPI, Abdominal Pain, Belching, Bloating, Change in Bowel Habits, Change in Stool Character, Coffee Ground Emesis, Constipation, Cramping, Diarrhea, Dyspepsia, Dysphagia, Early Satiety, Excessive Flatus, Fecal Incontinence, Heartburn, Hematemesis, Hematochezia, Loose Stools, Melena, Nausea, Odynophagia, Temesmus, Vomiting, Other, UNREMARKABLE - Genitourinary Genitourinary: absent: As Per HPI, Change in Urinary Stream, Difficulty Urinating, Dysuria, Flank Pain, Hematuria, Pyuria, Nocturia, Urinary Incontinence, Urinary Frequency, Urinary Hesitance, Urinary Urgency, Voiding Freq/Small Amts, Freq UTI, Hx Renal/Bladder Calculi, Hx /Renal Surgery, Bladder Distension, Other, UNREMARKABLE Critical Care Progress Note - Extremities/Vascular Does the Patient have a Central Venous Catheter?: No Does the Patient need a Central Venous Catheter?: No Does the Patient have a [place] Catheter?: No Does the Patient need a [place] Catheter?: No - Nutrition Nutrition: Nutrition Category Date Time Status Heart Healthy Diet [DIET] Diets 07/26/17 Breakfast Active Assessment/Plan (1) STEMI (ST elevation myocardial infarction) Current Visit: Yes Status: Acute Priority: High Comment: PCI of Diagonal Doing well, chest pain free Aspirin [Ecotrin] 81 mg PO DAILY #30 tabec Lisinopril [Zestril] 5 mg PO DAILY #30 tab Metoprolol Tartrate [Lopressor] 25 mg PO BID #60 tab Rosuvastatin Calcium [Crestor] 20 mg PO HS #30 tab Ticagrelor [Brilinta] 90 mg PO BID #60 tab (2) CAD (coronary artery disease) Current Visit: Yes Status: Acute
[2017-07-26 19:59] VITALS: BP 89/55; PULSE 68; RESP 18
[2017-07-26 20:00] VITALS: TEMP 97.6; O2SAT 95
--- NOTE | 2017-07-26 21:33 | CARD ---
APPROVED REPORT EXAM: Two-dimensional and M-mode echocardiogram with Doppler and color Doppler. Other Information Quality : GoodRhythm : INDICATION Acute HI Non STEMI CODE HEART, S/P CARDIAC CATH 2D DIMENSIONS IVSd0.9 (0.7-1.1cm)Aortic Root (2D)3.0 (2.0-3.7cm) LVDd4.2 (3.9-5.9cm)PWd0.8 (0.7-1.1cm) LVDs2.6 (2.5-4.0cm)FS (%) 38.0 % LVEF (%)68.5 (>50%) M-Mode DIMENSIONS RVDd1.95 (2.1-3.2cm)Left Atrium (MM)2.92 (2.5-4.0cm) IVSd0.95 (0.7-1.1cm)Aortic Root3.02 (2.2-3.7cm) LVDd4.48 (4.0-5.6cm)Aortic Cusp Exc.2.28 (1.5-2.0cm) PWd0.90 (0.7-1.1cm)FS (%) 47 % LVDs2.38 (2.0-3.8cm)LVEF (%)70 (>50%) Mitral Valve MV E Pbkojpst77.6cm/sMV A Igyouflz34.5cm/sE/A ratio1.3 TDI E/Lateral E'0.0E/Medial E'0.0 Tricuspid Valve TR Peak [id number]/sTR Peak Gr.[id number] LEFT VENTRICLE The left ventricle is normal size. There is normal left ventricular wall thickness. Left ventricle systolic function is normal. The Ejection Fraction is 65-70%. There is normal LV segmental wall motion. The left ventricular diastolic function is normal. There is no ventricular septal defect visualized. RIGHT VENTRICLE The right ventricle is normal size. The right ventricular systolic function is normal. ATRIA The left atrium size is normal. The right atrium size is normal. AORTIC VALVE The aortic valve is mildly sclerotic. The aortic valve is tri-cuspid. No aortic regurgitation is present. There is no aortic valvular stenosis. MITRAL VALVE The mitral valve is normal in structure. There is no evidence of mitral valve prolapse. Mitral regurgitation is trace. TRICUSPID VALVE The tricuspid valve is normal in structure. There is trace tricuspid regurgitation. Right ventricular systolic pressure is estimated at less than 30 mmHg. There is no pulmonary hypertension. PULMONIC VALVE The pulmonic valve is not well visualized. There is trace pulmonic valvular regurgitation. GREAT VESSELS The aortic root is normal in size. The ascending aorta is normal in size. The IVC is normal in size and collapses >50% with inspiration. PERICARDIAL EFFUSION There is no pericardial effusion. <Conclusion> Left ventricle systolic function is normal. The Ejection Fraction is 65-70%. There is normal LV segmental wall motion. The left ventricular diastolic function is normal. Mitral regurgitation is trace.
--- NOTE | 2017-07-28 03:16 | CARD ---
APPROVED REPORT EKG Measurement Heart [id number] <Conclusion> Suspect arm lead reversal, interpretation assumes no reversal Normal sinus rhythm Left posterior fascicular block Abnormal ECG
--- NOTE | 2017-07-28 03:16 | CARD ---
APPROVED REPORT EKG Measurement Heart [id number] <Conclusion> Normal sinus rhythm Normal ECG
[2017-07-28] MEDS ORDERED: Pneumococcal 23-Valent Vaccine SC ONE (10:00)
== END 2017-07-26 17:50 | disposition home or self-care (01) | DRG 853 ==
LOC: C.ER 02:41 → C.9I 02:49
PROVIDERS: ADMIT Family Medicine; ATTEND Family Medicine
PROC: 027034Z Dilation of Coronary Artery, One Artery with Drug-eluting Intraluminal Device, Percutaneous Approach (ICD-10-PCS; principal; 2017-07-26)
PROC: 4A023N7 Measurement of Cardiac Sampling and Pressure, Left Heart, Percutaneous Approach (ICD-10-PCS; 2017-07-26)
PROC: B211YZZ Fluoroscopy of Multiple Coronary Arteries using Other Contrast (ICD-10-PCS; 2017-07-26)
PROC: B215YZZ Fluoroscopy of Left Heart using Other Contrast (ICD-10-PCS; 2017-07-26)
DX: I21.09 ST elevation (STEMI) myocardial infarction involving other coronary artery of anterior wall (principal); I25.10 Atherosclerotic heart disease of native coronary artery without angina pectoris; E03.9 Hypothyroidism, unspecified; Z79.899 Other long term (current) drug therapy